=== PATIENT | female | born 1985 | race Caucasian/White ===

== ENCOUNTER 2018-05-18 06:33 | Inpatient (IN) | payer BC ==
[~2018-05-18] VITALS: Ht 175.3 cm; Wt 78.2 kg
[2018-05-18] VITALS (35 sets, daily range): BP systolic 110–133; BP diastolic 50–80; PULSE 63–98; TEMP 97.5–98
[~2018-05-18 06:33] MED LIST: CORGARD40 MG PO; LEXAPRO 5MG5 MG PO; MOTRIN 600600 MG/TAB PO; PERCOCET 325 MG1 TA2 PO; PRENATAL MVI; PRENATAL1 TA1 PO
[2018-05-18] MEDS ORDERED: PRENATAL GUMMY PO (06:52)
[2018-05-18] MEDS ORDERED: LEXAPRO 10MG10 MG PO (06:53)
[2018-05-18 08:07] LABS: BASO % 0.2 % (0.0-2.0); EOS % 0.4 % (0-4.0); GRAN # 7.1 (1.4-6.5); GRAN % 71.8 % (42.2-75.2); HEMOGLOBIN 12.2 g/dl (12.5-16.0); LYMPH # 1.8 (1.2-3.4); LYMPH % 18.4 % (20.0-51.0); MEAN CELL VOLUME 85 fl (80.0-100.0); MEAN CORPUSCULAR HEMOGLOBIN 29 pg (27.0-31.0); MEAN CORPUSCULAR HGB CONC 34 g/dl (33.0-37.0); MEAN PLATELET VOLUME 10.6 fl (7.4-10.4); MONO # 0.8 (0.1-0.6); MONO % 8.1 % (1.7-9.3); PLATELET COUNT 265 K/mm3 (130-400); RED BLOOD COUNT 4.24 M/mm3 (4.10-5.30); REDCELL DISTRIBUTION WIDTH-CV 12.9 % (11.5-14.5)
[2018-05-18 08:08] LABS: HEMATOCRIT 36.1 % (37.0-47.0)
[2018-05-19 07:59] VITALS: BP 112/64; PULSE 74; TEMP 98.3
== END 2018-05-19 15:10 | disposition home or self-care (01) | DRG 775 ==
LOC: LDR 06:33 → OB 16:01
PROVIDERS: Obstetrics & Gynecology
PROC: 10E0XZZ Delivery of Products of Conception, External Approach (ICD-10-PCS; principal; 2018-05-18)
PROC: 3E033VJ Introduction of Other Hormone into Peripheral Vein, Percutaneous Approach (ICD-10-PCS; 2018-05-18)
PROC: 0HQ9XZZ Repair Perineum Skin, External Approach (ICD-10-PCS; 2018-05-18)
DX: O48.0 Post-term pregnancy (principal); O70.9 Perineal laceration during delivery, unspecified; O69.81X0 Labor and delivery complicated by cord around neck, without compression, not applicable or unspecified; Z37.0 Single live birth; Z3A.40 40 weeks gestation of pregnancy
CPT/HCPCS: J2590; J7120